=== PATIENT | female | born 1950 | race Caucasian/White ===

== ENCOUNTER 2020-11-19 06:02 | Day surgery (SDC) | payer MEDICARE, OTHER, SELFPAY ==
[2020-11-13 14:59] VITALS: BMI 30.4
--- NOTE | 2020-11-14 12:31 | MHC.SHP ---
Pre-Procedural Eval Section A The patient is an INPATIENT: No The History & Physical has been completed within 30 days and I have reviewed it.: Yes Section B Chief Complaint: Cataract Right Eye Allergies: Allergies Allergy/AdvReac Type Severity Reaction Status Date / Time codeine [CODEINE] Allergy Intermediate Rash Verified 11/13/20 14:56 Plan Diagnosis/Plan: Unchanged I have reviewed the history and physical and performed a pertinent physical examination on my patient. No changes have occurred unless specified.
--- NOTE | 2020-11-16 09:13 | P.CONAN_ITS ---
Documented by User: Carolyn Jo 11/16/20 09:14 HPI - Anesthesia Eval Consult details Narrative: 70yo F for Right Cataract Extraction IOL Insertion No prev cataract on record PCP cleared [facility] Past Medical History Medical History (Updated 11/19/20 @ 07:38 by Yara Nino) Anemia Arthritis CAD (coronary artery disease) Chronic renal insufficiency COVID-19 vaccine series completed Depression Diabetes Elevated cholesterol Former smoker GERD (gastroesophageal reflux disease) HTN (hypertension) Surgical History Surgical History H/O colonoscopy Hx of appendectomy Hx of breast biopsy Hx of CABG Hx of hysterectomy Hx of liver transplant Hx of tonsillectomy Social History Social History Smoking Status: Former smoker Use of substances other than those prescribed or required for medical reasons: No Advance Directives: No Advance Directives Information Provided: No Advance Directives on File: No Meds Allergies Allergy/AdvReac Type Severity Reaction Status Date / Time codeine [CODEINE] Allergy Intermediate Rash Verified 11/13/20 14:56 Home Medications Medication Instructions Recorded Confirmed Last Taken Type atorvastatin 80 mg PO BEDTIME 08/07/20 11/13/20 Unknown History cholecalciferol (vitamin D3) 50 mcg PO DAILY 08/07/20 11/13/20 Unknown History [Vitamin D3] gabapentin 600 mg PO BEDTIME 08/07/20 11/13/20 Unknown History insulin aspart U-100 [Novolog 14 unit SUBCUT TID 08/07/20 11/13/20 Unknown History U-100 Insulin aspart] insulin glargine [Basaglar KwikPen 36 unit SUBCUT QPM 08/07/20 11/19/20 11/19/20 History U-100 Insulin] metoprolol tartrate 100 mg PO BID 08/07/20 11/13/20 11/19/20 History multivitamin 1 tab PO DAILY 08/07/20 11/13/20 Unknown History mycophenolate mofetil 500 mg PO BID 08/07/20 11/13/20 11/19/20 History omeprazole 20 mg PO DAILY 08/07/20 11/13/20 11/19/20 History paroxetine HCl 20 mg PO DAILY 08/07/20 11/13/20 Unknown History tacrolimus 3 mg PO DAILY 08/07/20 11/13/20 11/19/20 History aspirin [Aspir-81] 81 mg PO DAILY 11/13/20 11/13/20 Unknown History Exam Exam Date and Time: November 16, 2020912 Height,Weight and Vital Signs: Height 5 ft 4 in Weight 80.286 kg Assessment and Plan Assessment Anesthesia Assessment: Chart Reviewed Documented by User: Yara Nino 11/19/20 07:40 [facility] Past Medical History Medical History (Updated 11/19/20 @ 07:38 by Yara Nino) Anemia Arthritis CAD (coronary artery disease) Chronic renal insufficiency COVID-19 vaccine series completed Depression Diabetes Elevated cholesterol Former smoker GERD (gastroesophageal reflux disease) HTN (hypertension) Family History Family history of problems with anesthesia: No Surgical History Surgical History H/O colonoscopy Hx of appendectomy Hx of breast biopsy Hx of CABG Hx of hysterectomy Hx of liver transplant Hx of tonsillectomy History of Problems with Anesthesia: No Social History Social History Smoking Status: Former smoker Use of substances other than those prescribed or required for medical reasons: No Advance Directives: No Advance Directives Information Provided: No Advance Directives on File: No Meds Allergies Allergy/AdvReac Type Severity Reaction Status Date / Time codeine [CODEINE] Allergy Intermediate Rash Verified 11/13/20 14:56 Home Medications Medication Instructions Recorded Confirmed Last Taken Type atorvastatin 80 mg PO BEDTIME 08/07/20 11/13/20 Unknown History cholecalciferol (vitamin D3) 50 mcg PO DAILY 08/07/20 11/13/20 Unknown History [Vitamin D3] gabapentin 600 mg PO BEDTIME 08/07/20 11/13/20 Unknown History insulin aspart U-100 [Novolog 14 unit SUBCUT TID 08/07/20 11/13/20 Unknown History U-100 Insulin aspart] insulin glargine [Basaglar KwikPen 36 unit SUBCUT QPM 08/07/20 11/19/20 11/19/20 History U-100 Insulin] metoprolol tartrate 100 mg PO BID 08/07/20 11/13/20 11/19/20 History multivitamin 1 tab PO DAILY 08/07/20 11/13/20 Unknown History mycophenolate mofetil 500 mg PO BID 08/07/20 11/13/20 11/19/20 History omeprazole 20 mg PO DAILY 08/07/20 11/13/20 11/19/20 History paroxetine HCl 20 mg PO DAILY 08/07/20 11/13/20 Unknown History tacrolimus 3 mg PO DAILY 08/07/20 11/13/20 11/19/20 History aspirin [Aspir-81] 81 mg PO DAILY 11/13/20 11/13/20 Unknown History Exam Height,Weight and Vital Signs: Vital Signs Temp Pulse Resp BP Pulse Ox 11/19/20 06:37 97.7 F 75 16 159/83 H 97 Pertinent Lab Results Pertinent Lab Results: Lab Results 11/19/20 Range/Units 06:16 POC Glucose 240 H (60-115) mg/dL Airway Mallampati Class: II TM Dist: >3cm Neck ROM: Full Partial: Upper Heart: RRR Lungs: CTAB Assessment and Plan Assessment Anesthesia Assessment: Anesthesia Plan Discussed and Chart Reviewed Final Anesthetic Review NPO: Yes ASA Class: III Final Preanesthetic Review: No Changes in Pt Med Stat, Meds/Allgs Chart Reviewed, Consent Obtained/Reviewed and Anes Risks/Benef Reviewed Patient Risk: Intermediate Procedure Risk: Low Assessment/Block/Sedation in SS: Assess/Block/Sedation-SS Anesthetic Plan Anesthetic Plan: MAC: Disposition: Standard PACU
[2020-11-19 06:19] LABS: Glucose, Whole Blood 240 mg/dL (60-115)
[2020-11-19] MEDS: Tetracaine HCl/PF 0.5% Oph Sol 4 ML DROPS 1 DROP EYE-RIGHT (06:25)
[2020-11-19] MEDS: Tropicamide 1 % Ophth Sol 3 ML BTL 1 DROP EYE-RIGHT ×3 (06:27→06:35)
[2020-11-19] MEDS: Phenylephrine HCL 2.5% Oph SoL 2 ML BOTTLE 1 DROP EYE-RIGHT ×3 (06:30→06:37)
[2020-11-19 06:37] VITALS: BP 159/83; PULSE 75; RESP 16; TEMP 36.5; O2SAT 97
[2020-11-19] MEDS: Lactated Ringers 500 ML 50 ML IV (06:43)
--- NOTE | 2020-11-19 08:23 | HO.PNOPHT ---
Ophthalmology Procedure Procedure Date of Service: 11/19/20 Ophthalmology Viscoelastic: Healjosephine Monzont Dual Pack Pro Ophthalmology Lenses: TECEDDIE [id number] (22) Procedure Notes: PREOPERATIVE DIAGNOSIS: Decreased visual acuity right eye secondary to cataract POSTOPERATIVE DIAGNOSIS: Same PROCEDURE: Right cataract extraction with intraocular lens insertion SURGEON: Delbert Spence M.D. ANESTHESIA: Topical/MAC ESTIMATED BLOOD LOSS: None COMPLICATIONS: None After obtaining informed consent, the patient was brought to the operating room suite and placed in the supine position. After adequate sedation per anesthesia, topical drops of Tetracaine were given to the right eye. The eye was then prepped and draped in the usual sterile fashion. The operating room microscope was then positioned over the operative eye and a lid speculum placed. A paracentesis was created. Viscoelastic was then instilled into the anterior chamber. A three plane incision was then created temporally, utilizing a 2.85 mm keratome. Capsulotomy forceps were then utilized to create a circular tear capsulotomy. Hydrodissection and hydrodelineation were carried out until adequate mobilization of the nucleus occurred. Phacoemulsification was then utilized to remove the dense central nucleus followed by removal of the cortical material utilizing the automated aspiration irrigation unit. Viscoelastic was instilled into the posterior capsular bag followed by placement of a posterior chamber intraocular lens without difficulty. The residual Viscoelastic was then removed utilizing the automated IA machine. The wound was checked and found to be watertight. The patient tolerated the procedure well and the lid speculum was removed. Intracameral injection of Vigamox 0.1 mL followed by a subtenon injection of Kenalog-40 0.2 mL were administered. The patient will be seen in the a.m.
[2020-11-19 08:28] VITALS: BP 152/63; PULSE 61; RESP 12; TEMP 36.3; O2SAT 100
== END 2020-11-19 09:08 | disposition home or self-care (01) ==
PROVIDERS: PCP Internal Medicine; Visit Provider Ophthalmology
PROC: (CPT 66985; principal; 2020-11-19 08:00)
DX: H25.11 Age-related nuclear cataract, right eye (principal); H52.4 Presbyopia; I10 Essential (primary) hypertension; E11.9 Type 2 diabetes mellitus without complications; Z79.84 Long term (current) use of oral hypoglycemic drugs; Z79.899 Other long term (current) drug therapy
CPT/HCPCS: 66984; 82947; J2250; J3010; J3300; V2632

== ENCOUNTER 2020-12-03 07:58 | Day surgery (SDC) | payer MEDICARE, OTHER, SELFPAY ==
[2020-11-13 15:01] VITALS: BMI 30.4
--- NOTE | 2020-11-28 12:35 | P.CONAN_ITS ---
Documented by User: Carolyn Osorio 11/28/20 12:36 HPI - Anesthesia Eval Consult details Narrative: 70yo F for Left Cataract Extraction IOL Insertion Right eye 5/3 with TIVA: Fent 50, Midaz 2 PCP cleared [facility] Past Medical History Medical History (Updated 12/03/20 @ 09:20 by Yara Nino) Anemia Arthritis CAD (coronary artery disease) Chronic renal insufficiency COVID-19 vaccine series completed Depression Diabetes Elevated cholesterol Former smoker GERD (gastroesophageal reflux disease) HTN (hypertension) Family History Family history of problems with anesthesia: No Surgical History Surgical History H/O colonoscopy Hx of appendectomy Hx of breast biopsy Hx of CABG Hx of hysterectomy Hx of liver transplant Hx of tonsillectomy History of Problems with Anesthesia: No Social History Social History Smoking Status: Former smoker Smoking Quit Date: 1995 Use of substances other than those prescribed or required for medical reasons: No Are you DNR?: No Advance Directives: No Advance Directives Information Provided: No Advance Directives on File: No Meds Allergies Allergy/AdvReac Type Severity Reaction Status Date / Time codeine [CODEINE] Allergy Intermediate Rash Verified 11/13/20 14:56 Home Medications Medication Instructions Recorded Confirmed Last Taken Type atorvastatin 80 mg PO BEDTIME 08/07/20 11/13/20 Unknown History cholecalciferol (vitamin D3) 50 mcg PO DAILY 08/07/20 11/13/20 Unknown History [Vitamin D3] gabapentin 600 mg PO BEDTIME 08/07/20 11/13/20 Unknown History insulin aspart U-100 [Novolog 14 unit SUBCUT TID 08/07/20 11/13/20 Unknown History U-100 Insulin aspart] insulin glargine [Basaglar KwikPen 40 unit SUBCUT QPM 08/07/20 11/19/20 12/02/20 21:30 History U-100 Insulin] 20 metoprolol tartrate 100 mg PO BID 08/07/20 11/13/20 11/19/20 History multivitamin 1 tab PO DAILY 08/07/20 11/13/20 Unknown History mycophenolate mofetil 500 mg PO BID 08/07/20 11/13/20 12/03/20 History omeprazole 20 mg PO DAILY 08/07/20 11/13/20 12/03/20 History paroxetine HCl 20 mg PO DAILY 08/07/20 11/13/20 Unknown History tacrolimus 3 mg PO DAILY 08/07/20 11/13/20 12/03/20 History aspirin [Aspir-81] 81 mg PO DAILY 11/13/20 11/13/20 12/02/20 History Exam Exam Date and Time: November 28, 2020 1235 Height,Weight and Vital Signs: Height 5 ft 4 in Weight 80.286 kg Assessment and Plan Assessment Anesthesia Assessment: Chart Reviewed Documented by User: Yara Nino 12/03/20 09:22 [facility] Past Medical History Medical History (Updated 12/03/20 @ 09:20 by Yara Nino) Anemia Arthritis CAD (coronary artery disease) Chronic renal insufficiency COVID-19 vaccine series completed Depression Diabetes Elevated cholesterol Former smoker GERD (gastroesophageal reflux disease) HTN (hypertension) Surgical History Surgical History H/O colonoscopy Hx of appendectomy Hx of breast biopsy Hx of CABG Hx of hysterectomy Hx of liver transplant Hx of tonsillectomy Social History Social History Smoking Status: Former smoker Smoking Quit Date: 1995 Use of substances other than those prescribed or required for medical reasons: No Are you DNR?: No Advance Directives: No Advance Directives Information Provided: No Advance Directives on File: No Meds Allergies Allergy/AdvReac Type Severity Reaction Status Date / Time codeine [CODEINE] Allergy Intermediate Rash Verified 11/13/20 14:56 Home Medications Medication Instructions Recorded Confirmed Last Taken Type atorvastatin 80 mg PO BEDTIME 08/07/20 11/13/20 Unknown History cholecalciferol (vitamin D3) 50 mcg PO DAILY 08/07/20 11/13/20 Unknown History [Vitamin D3] gabapentin 600 mg PO BEDTIME 08/07/20 11/13/20 Unknown History insulin aspart U-100 [Novolog 14 unit SUBCUT TID 08/07/20 11/13/20 Unknown History U-100 Insulin aspart] insulin glargine [Kadiaglkatherine GenaoPen 40 unit SUBCUT QPM 08/07/20 11/19/20 12/02/20 21:30 History U-100 Insulin] 20 metoprolol tartrate 100 mg PO BID 08/07/20 11/13/20 11/19/20 History multivitamin 1 tab PO DAILY 08/07/20 11/13/20 Unknown History mycophenolate mofetil 500 mg PO BID 08/07/20 11/13/20 12/03/20 History omeprazole 20 mg PO DAILY 08/07/20 11/13/20 12/03/20 History paroxetine HCl 20 mg PO DAILY 08/07/20 11/13/20 Unknown History tacrolimus 3 mg PO DAILY 08/07/20 11/13/20 12/03/20 History aspirin [Aspir-81] 81 mg PO DAILY 11/13/20 11/13/20 12/02/20 History Exam Height,Weight and Vital Signs: Vital Signs Temp Pulse Resp BP Pulse Ox 12/03/20 09:14 97.4 F 62 16 144/78 H 95 Pertinent Lab Results Pertinent Lab Results: Lab Results 12/03/20 Range/Units 08:58 POC Glucose 260 H (60-115) mg/dL Airway Mallampati Class: II TM Dist: >3cm Neck ROM: Full Partial: Upper Heart: RRR Lungs: CTAB Assessment and Plan Assessment Anesthesia Assessment: Anesthesia Plan Discussed and Chart Reviewed Final Anesthetic Review NPO: Yes ASA Class: III Final Preanesthetic Review: No Changes in Pt Med Stat, Meds/Allgs Chart Reviewed, Consent Obtained/Reviewed and Anes Risks/Benef Reviewed Patient Risk: Intermediate Procedure Risk: Low Assessment/Block/Sedation in SS: Assess/Block/Sedation-SS Anesthetic Plan Anesthetic Plan: MAC: Disposition: Standard PACU
--- NOTE | 2020-11-28 15:28 | MHC.SHP ---
Pre-Procedural Eval Section A The patient is an INPATIENT: No The History & Physical has been completed within 30 days and I have reviewed it.: Yes Section B Chief Complaint: Cataract Left Eye Allergies: Allergies Allergy/AdvReac Type Severity Reaction Status Date / Time codeine [CODEINE] Allergy Intermediate Rash Verified 11/13/20 14:56 Plan Diagnosis/Plan: Unchanged I have reviewed the history and physical and performed a pertinent physical examination on my patient. No changes have occurred unless specified.
[2020-12-03 09:02] LABS: Glucose, Whole Blood 260 mg/dL (60-115)
[2020-12-03] MEDS: Tetracaine HCl/PF 0.5% Oph Sol 4 ML DROPS 1 DROP EYE-LEFT (09:06)
[2020-12-03] MEDS: Lactated Ringers 500 ML 50 ML IV (09:07)
[2020-12-03] MEDS: Tropicamide 1 % Ophth Sol 3 ML BTL 1 DROP EYE-LEFT ×3 (09:08→09:22)
[2020-12-03] MEDS: Phenylephrine HCL 2.5% Oph SoL 2 ML BOTTLE 1 DROP EYE-LEFT ×3 (09:13→09:27)
[2020-12-03 09:14] VITALS: BP 144/78; PULSE 62; RESP 16; TEMP 36.3; O2SAT 95
--- NOTE | 2020-12-03 09:36 | PC.NURSE ---
Okay to leave upper partials in during procedure per MD Nino.
[2020-12-03 10:18] VITALS: BP 156/84; PULSE 62; RESP 16; TEMP 36.4; O2SAT 96
--- NOTE | 2020-12-03 14:28 | HO.PNOPHT ---
Ophthalmology Procedure Procedure Date of Service: 12/03/20 Ophthalmology Viscoelastic: Healjosephine Duet Dual Pack Pro Ophthalmology Lenses: TECEDDIE [id number] (21) Procedure Notes: PREOPERATIVE DIAGNOSIS: Decreased visual acuity left eye secondary to cataract POSTOPERATIVE DIAGNOSIS: Same PROCEDURE: Left cataract extraction with intraocular lens insertion SURGEON: Delbert Spence M.D. ANESTHESIA: Topical/MAC ESTIMATED BLOOD LOSS: None COMPLICATIONS: None After obtaining informed consent, the patient was brought to the operation room suite and placed in the supine position. After adequate sedation per anesthesia, topical drops of Tetracaine were given to the left eye. The eye was then prepped and draped in the usual sterile fashion. The operating room microscope was then positioned over the operative eye and a lid speculum placed. A paracentesis was created. Viscoelastic was then instilled into the anterior chamber. A three plane incision was then created temporally, utilizing a 2.85 mm keratome. Capsulotomy forceps were then utilized to create a circular tear capsulotomy. Hydrodissection and hydrodelineation were carried out until adequate mobilization of the nucleus occurred. Phacoemulsification was then utilized to remove the dense central nucleus followed by removal of the cortical material utilizing the automated aspiration irrigation unit. Viscoat elastic was instilled into the posterior capsular bag followed by placement of a posterior chamber intraocular lens without difficulty. The residual Viscoat elastic was then removed utilizing the automated IA machine. The wound was check and found to be watertight. The patient tolerated the procedure well and the lid speculum was removed. Intracameral injection of Vigamox 0.1 mL followed by a subtenon injection of Kenalog-40 0.2 mL were administered. The patient will be seen in the a.m.
== END 2020-12-03 11:24 | disposition home or self-care (01) ==
PROVIDERS: PCP Internal Medicine; Visit Provider Ophthalmology
PROC: (CPT 66985; principal; 2020-12-03 10:20)
DX: H25.12 Age-related nuclear cataract, left eye (principal); H52.4 Presbyopia; E11.22 Type 2 diabetes mellitus with diabetic chronic kidney disease; I12.9 Hypertensive chronic kidney disease with stage 1 through stage 4 chronic kidney disease, or unspecified chronic kidney disease; N18.9 Chronic kidney disease, unspecified; Z79.4 Long term (current) use of insulin; K76.89 Other specified diseases of liver; Z94.4 Liver transplant status; Z79.899 Other long term (current) drug therapy; Z79.82 Long term (current) use of aspirin; Z88.8 Allergy status to other drugs, medicaments and biological substances; Z87.891 Personal history of nicotine dependence
CPT/HCPCS: 66984; 82947; J2250; J3300; V2632